=== PATIENT | male | born 1990 | race Caucasian/White ===

== ENCOUNTER 2020-04-26 17:19 | Emergency (ER) | payer OTHER, SELFPAY ==
[2020-04-26 17:50] VITALS: BP 152/87; PULSE 81; RESP 16; TEMP 37; O2SAT 100; BMI 22.9
[2020-04-26 20:00] VITALS: BP 140/95; PULSE 73; RESP 18; TEMP 37.7; O2SAT 98
--- NOTE | 2020-04-26 23:01 | ED.DENTAL ---
HPI - Dental/Oral General Chief complaint: Dental/Oral Stated complaint: dental pain Time Seen by Provider: 04/26/20 23:00 Source: patient Mode of arrival: ambulatory Limitations: no limitations History of Present Illness HPI Narrative: 29-year-old male otherwise healthy presented with a right cheek facial swelling and tenderness, patient has been having bad tooth. Otherwise patient declined any fever or chills, declined any difficulty breathing or throat pain. Related Data Previous Rx's Medication Instructions Recorded amoxicillin 500 mg PO TID #20 cap 04/26/20 ibuprofen 600 mg PO Q8H PRN #30 tab 04/26/20 Allergies Allergy/AdvReac Type Severity Reaction Status Date / Time No Known Allergies Allergy Verified 04/26/20 17:52 Review of Systems Review of Systems: All other systems are reviewed and are negative Constitutional: Reports as per HPI and Reports no additional constitutional complaints Eyes: Reports as per HPI and Reports no additional eye complaints Reports system reviewed and no additional complaints, except as documented Cardiovascular: Reports as per HPI and Reports no additional cardiovascular complaints Respiratory: Reports as per HPI and Reports no additional respiratory complaints Gastrointestinal: Reports as per HPI and Reports no additional gastrointestinal complaints Genitourinary: Reports no additional female genitourinary complaints Musculoskeletal: Reports no additional musculoskeletal complaints Skin/Breast: Reports system reviewed and no additional complaints, except as docu Psychiatric: Reports no additional psychiatric complaints Endocrine: Reports no additional endocrine complaints Hematologic/Lymphatic: Reports no additional hematologic/lymphatic complaints Allergic/Immunologic: Reports no additional allergic/immunologic complaints Reports system reviewed and no additional complaints, except as documented and Reports Abnormal speech present [facility] Past Medical History Medical History Patient denies significant medical history Social History Social History Alcohol intake: unknown Smoking Status: Unknown if ever smoked Use of substances other than those prescribed or required for medical reasons: No Advance Directives: No Advance Directives Information Provided: No Physical Exam Vital Signs: Vital Signs: Last Vital Signs Temp 99.8 F 04/26/20 20:00 Pulse 73 04/26/20 20:00 Resp 18 04/26/20 20:00 BP 140/95 H 04/26/20 20:00 Pulse Ox 98 04/26/20 20:00 Body Mass Index 22.9 Vital signs have been reviewed as normal and appeared to be correct. Blood pressure in the high range. Heart rate normal. Respiration rate normal. Temperature normal. Oxygen saturation normal. Appearance: Alert. Oriented X3. No acute distress. Head: Normal external exam. Normocephalic. Atraumatic. No Lawson signs noted. No raccoon eyes noted Eyes: PERRLA. EOMI. Conjunctiva and sclera normal. Eyelids normal. ENT: EAC normal. TM's Normal. Pharynx normal. Uvula midline. Moist mucous membranes. No trismus noted. No drooling noted. No muffled voice noted. Mouth exam/ facial: Right cheek redness with hotness and swelling, no fluctuation or discrete abscess is appreciated, decay and tenderness with gum tenderness without fluctuation around right upper 2nd molar tooth. Neck: Normal inspection. Neck supple. FROM. No adenopathy. Thyroid Normal. No meningeal signs. No neck mass noted. CVS: Normal heart rate and rhythm. Heart sound normal. No murmurs noted. Pulses normal throughout. Respiratory: No respiratory distress. Painless inspiration. Breath sounds normal. No wheezes/rales/rhonchi noted. Chest nontender. No accessory muscle usage noted or decreased air movement noted. Abdomen: Soft and nontender. Bowel sounds normal in all 4 quadrants. No distention noted. No organomegaly noted. No visible injury noted. Back: No CVA tenderness. Full range of motion noted. Skin: Skin warm and dry. Normal skin color. Normal skin turgor. No rashes/lesions/lacerations noted. Extremities: No lower extremity edema. Extremities exhibit normal range of motion. Extremities nontender. Neuro: Oriented X 3. No motor deficit. No sensory deficit. Reflexes normal. Course Course Course Narrative: Right facial cellulitis due to dental infection. Start patient on amoxicillin/NSAIDs. Follow-up with dentist. Discharge Plan Discharge Clinical Impression: Cellulitis of face, Dental caries Patient Disposition: Home, Self-Care Instructions: Cellulitis (ED) Additional Instructions: Follow-up with your dentist in 2 days. Prescriptions: New amoxicillin 500 mg capsule 500 mg PO TID Qty: 20 RF: 0 ibuprofen 600 mg tablet 600 mg PO Q8H PRN (Reason: fever or pain) Qty: 30 RF: 0 Referrals: Physician,Unknown [Primary Care Provider] - 2 days
[2020-04-26] MEDS: Amoxicillin 500 MG CAPSULE PO (23:24)
[2020-04-26] MEDS: Ibuprofen 600 MG TABLET PO (23:24)
== END 2020-04-26 23:26 | disposition home or self-care (01) ==
PROVIDERS: Emergency Provider Emergency Medicine
DX: K12.2 Cellulitis and abscess of mouth (principal); K02.9 Dental caries, unspecified
CPT/HCPCS: 99284